=== PATIENT | female | born 1970 | race Caucasian/White ===

== ENCOUNTER 2017-11-01 18:30 | Emergency (ER) | payer OTHER, SELFPAY | END 2017-11-01 20:21 | disposition home or self-care (01) | LOC: ERS 18:30 | DX: J06.9 Acute upper respiratory infection, unspecified (principal); I10 Essential (primary) hypertension; F17.210 Nicotine dependence, cigarettes, uncomplicated; Z79.899 Other long term (current) drug therapy | CPT/HCPCS: 87081; 87430; 99283 ==

== ENCOUNTER 2021-03-05 14:31 | Emergency (ER) | payer BC ==
[2021-03-05] MEDS ORDERED: Ondansetron ODT 4 MG TAB ONE (16:57)
== END 2021-03-05 17:00 | disposition home or self-care (01) ==
LOC: ERS 14:31
DX: U07.1 COVID-19 (principal); I10 Essential (primary) hypertension; F17.200 Nicotine dependence, unspecified, uncomplicated
CPT/HCPCS: 99283; Q0162